=== PATIENT | male | born 1955 | race Caucasian/White ===

== ENCOUNTER 2019-11-23 07:27 | Emergency (ER) | payer OTHER ==
[2019-11-23] MEDS ORDERED: DIPHENHYDRAMINE HCL 50 MG/ML VIAL IV ONE (08:45)
[2019-11-23] MEDS ORDERED: METHYLPREDNISOLONE INJ 125 MG/2 ML SDV IV ONE (08:45)
[2019-11-23] MEDS ORDERED: FAMOTIDINE INJ/PF 20 MG/2 ML SDV IV ONE (08:45)
--- NOTE | 2019-11-23 09:02 | ER Document Report ---
Entered by JEFFY HAYNES SCRIBE 11/23/19 0842 Acting as scribe for:VENU VERAS MD ED Allergic Reaction - General Chief Complaint: Allergic Reaction Stated Complaint: POSSIBLE ALLERGIC REACTION Time Seen by Provider: 11/23/19 08:35 Mode of Arrival: Ambulatory Information source: Patient Notes: This 64-year-old male patient presents to the emergency department today with complaints of bilateral hand burning and blistering. Patient states he had an allergic reaction similar to this in the past to cutter bug spray. Patient states that he was hanging out with his neighbor last night who sprayed this bug spray and he thinks he is reacting to this. - Related Data Allergies/Adverse Reactions: Cutter Bug [place] Allergy (Uncoded 11/23/19 08:33) Past Medical History - General Information source: Patient - Social History Smoking Status: Former Smoker Cigarette use (# per day): No - quit 6-8 years ago Chew tobacco use (# tins/day): Yes Smoking Education Provided: No Frequency of alcohol use: Occasional Drug Abuse: None Occupation: retired Lives with: Family, Spouse/Significant other Family History: Reviewed & Not Pertinent Patient has homicidal ideation: No - Past Medical History Cardiac Medical History: Reports: Hx Coronary Artery Disease, Hx Heart Attack, Hx Hypercholesterolemia, Hx Hypertension Past Surgical History: Reports: Hx Appendectomy, Hx Coronary Stent - x3 Review of Systems - Review of Systems Constitutional: No symptoms reported EENT: No symptoms reported Cardiovascular: No symptoms reported Respiratory: No symptoms reported Gastrointestinal: No symptoms reported Genitourinary: No symptoms reported Male Genitourinary: No symptoms reported Musculoskeletal: No symptoms reported Skin: See HPI, Change in color, Lesions, Rash Hematologic/Lymphatic: No symptoms reported Neurological/Psychological: No symptoms reported -: Yes All other systems reviewed and negative Physical Exam - Vital signs Vitals: Temp Pulse Resp BP Pulse Ox 98.0 F 75 18 169/86 H 96 11/23/19 07:31 11/23/19 07:31 11/23/19 07:31 11/23/19 07:31 11/23/19 07:31 - Notes Notes: Physical Exam: General: Alert, appears uncomfortable. HEENT: Normocephalic. Atraumatic. PERRL. Extraocular movements intact. Oropharynx clear. Neck: Supple. Non-tender. Respiratory: No respiratory distress. Clear and equal breath sounds bilaterally. Cardiovascular: Regular rate and rhythm. Abdominal: Normal Inspection. Non-tender. No distension. Normal Bowel Sounds. Back: No gross abnormalities. Extremities: Moves all four extremities. Upper extremities: See skin exam Lower extremities: Normal inspection. No edema. Normal ROM. Neurological: Normal cognition. AAOx4. Normal speech. Psychological: Normal affect. Normal Mood. Skin: There is erythema to both hands, deeper red color over the palmar surface bilaterally. Both hands are warm to touch. On the dorsal sides of some fingers on both hands there is blistering. Course - Re-evaluation Re-evalutation: 11/23/19 10:08 After the Benadryl and Pepcid, patient reports his hands are up considerably improved without the pain burning and itching. He states there is only just a very slight discomfort noted now. I have advised him to continue Benadryl and Pepcid, will put him on a short course of steroids. When the blisters open on the fingers, he should put bacitracin ointment and Band-Aids over those. - Vital Signs Vital signs: Temp Pulse Resp BP Pulse Ox 97.7 F 64 18 152/65 H 96 11/23/19 10:06 11/23/19 10:06 11/23/19 10:06 11/23/19 10:06 11/23/19 10:06 Discharge - Discharge Clinical Impression: Allergic reaction Qualifiers: Encounter type: initial encounter Qualified Code(s): T78.40XA - Allergy, unspecified, initial encounter Condition: Stable Disposition: HOME, SELF-CARE Additional Instructions: Acute Allergic Reaction Your symptoms are due to an allergic reaction. Allergy can cause hives, swelling of the hands, feet, and face, hoarseness, and difficulty swallowing or breathing. It may be due to exposure to medication, animal dander, foods, infection, or insect bites. Medication is a common cause, even when prior use of this same medication caused no problems. Acute treatment may include adrenalin and antihistamines. Usually, the specific allergic agent can't be identified unless repeated episodes occur. Home treatment includes the following: (1) Stop any suspicious medications. This will be discussed with you. (2) Oral antihistamines for the next four to five days. Example, diphenhydramine (Benadryl) every four hours. (3) You may also use cimetidine (Tagamet), or famotidine (Pepcid) every four hours if diphenhydramine is not controlling itching and hives. (4) Avoid aspirin until the hives completely disappear. (5) Avoid hot baths or showers until the hives are completely gone. Call the doctor if faintness, difficulty swallowing, tightness in the chest, or wheezing occurs. Take Pepcid 20 mg every 4-6 hours today for allergic reaction symptoms in your hands. Take Benadryl 25 mg every 4 hours for allergic reaction symptoms if the Pepcid does not control the symptoms. Take the prednisone steroid as prescribed. Keep the skin clean, when the blisters open, then use bacitracin ointment and Band-Aids on the blistered areas. RETURN TO THE EMERGENCY ROOM IF ANY NEW OR WORSENING SYMPTOMS. Prescriptions: Prednisone [Deltasone 10 mg Tablet] 10 mg PO ASDIR PRN #21 tablet PRN Reason: I personally performed the services described in the documentation, reviewed and edited the documentation which was dictated to the scribe in my presence, and it accurately records my words and actions.
[2019-11-23 10:10] VITALS: BP 152/65
== END 2019-11-23 10:13 | disposition home or self-care (01) ==
LOC: ER 07:27
DX: T78.40XA Allergy, unspecified, initial encounter (principal); M79.641 Pain in right hand; M79.642 Pain in left hand; Z87.891 Personal history of nicotine dependence; I25.10 Atherosclerotic heart disease of native coronary artery without angina pectoris; I25.2 Old myocardial infarction; I10 Essential (primary) hypertension
CPT/HCPCS: 99283; 96374; 96375; J1200; J2930; S0028